=== PATIENT | female | born 1955 | race Hispanic/Latino ===

== ENCOUNTER 2023-11-23 16:20 | Emergency (ER) | payer MEDICARE ==
[~2023-11-23] VITALS: Ht 152.4 cm; Wt 72.6 kg
[2023-11-23 16:57] LABS: BASOPHILS # (AUTO) 0.07 K/uL (0.00-0.20); BASOPHILS % (AUTO) 0.7 % (0.0-5.0); EOSINOPHILS # (AUTO) 0.26 K/uL (0.00-0.70); EOSINOPHILS % (AUTO) 2.7 % (0.0-8.0); IMMATURE GRANULOCYTE ABSOLUTE 0.05 K/uL (0-1); LYMPHOCYTES # (AUTO) 2.2 K/uL (1.0-4.8); LYMPHOCYTES % (AUTO) 23.3 % (21.0-51.0); MEAN CORPUSCULAR HEMOGLOBIN 30.4 pg (27.0-33.0); MEAN CORPUSCULAR HGB CONC 33.1 g/dL (32.0-36.0); MEAN CORPUSCULAR VOLUME 91.8 fL (79-99); MONOCYTES # (AUTO) 0.5 K/uL (0.1-1.0); MONOCYTES % (AUTO) 5.6 % (3.0-13.0); NEUTROPHILS # (AUTO) 6.4 K/uL (1.8-7.7); NEUTROPHILS % (AUTO) 67.2 % (40.0-77.0); PLATELET COUNT (AUTO) 309 K/uL (130-400); RED BLOOD CELL COUNT(AUTO) 3.92 MIL/uL (4.00-5.50); WHITE BLOOD COUNT (AUTO) 9.5 K/uL (4.8-10.8)
[2023-11-23 17:07] LABS: CREATININE 1.3 mg/dL (0.5-1.0); POTASSIUM 5.5 mmol/L (3.5-5.1)
[2023-11-23 17:18] LABS: ALBUMIN 3.7 g/dL (3.5-5.0); BILIRUBIN,DIRECT 0.1 mg/dL (0.0-0.3); BILIRUBIN,TOTAL 0.4 mg/dL (0.2-1.0); TOTAL PROTEIN, SERUM 7.4 g/dL (6.0-8.3)
[2023-11-23] MEDS ORDERED: KETOROLAC 60 MG VIAL (30MG/ML) IM SCH (19:00)
[2023-11-23] MEDS: KETOROLAC 15MG/ML VIAL (15MG/ML) IV SCH (19:03)
[2023-11-23 19:33] LABS: APPEARANCE,URINE CLEAR (CLEAR); BILIRUBIN,URINE NEGATIVE (NEGATIVE); COLOR,URINE COLORLESS (YELLOW); GLUCOSE, URINE (UA) NEGATIVE (NEGATIVE); KETONES,URINE NEGATIVE (NEGATIVE); LEUKOCYTE ESTERASE ,URINE 75 Leu/uL (NEGATIVE); NITRATE,URINE NEGATIVE (NEGATIVE); OCCULT BLOOD,URINE NEGATIVE (NEGATIVE); PROTEIN,URINE NEGATIVE (NEGATIVE); UROBILINOGEN,URINE 0.2 mg/dL (0.2-1.0)
[2023-11-23 20:08] LABS: ADD UA MICROSCOPIC YES
[2023-11-23 20:20] LABS: BACTERIA,URINE MANY /HPF (None Seen)
[2023-11-23] MEDS: 0.9%NACL 1000ML 1,000 ML IV STA (20:55)
[2023-11-23] MEDS: MORPHINE 2 MG SYG IVP STA (21:21)
[2023-11-23 22:17] LABS: CREATININE 1.2 mg/dL (0.5-1.0); POTASSIUM 4.9 mmol/L (3.5-5.1)
[2023-11-23 22:39] VITALS: BP 172/70; PULSE 64; RESP 18; O2SAT 98
== END 2023-11-23 22:50 | disposition home or self-care (01) ==
LOC: EDH 16:20
DX: E86.0 Dehydration (principal); R10.31 Right lower quadrant pain; E11.9 Type 2 diabetes mellitus without complications
CPT/HCPCS: 99285; 74176; 96374; 96361; 96375; 80076; 84484; 80048 ×2; 83690; 85025; 87086 ×2; 87186; 81001; 36415; 93005; J2270; J7030; J1885

== ENCOUNTER 2025-04-04 19:33 | Emergency (ER) | payer MEDICARE, MEDICAID ==
[~2025-04-04] VITALS: Ht 149.9 cm; Wt 57.2 kg
[2025-04-04 20:23] VITALS: BP 119/81; PULSE 79; RESP 18; TEMP 97.2; O2SAT 99
--- NOTE | 2025-04-04 20:35 | ERN ---
ED Note History of Present Illness Stated Complaint: C/O PULLING SKIN INSIDE MOUTH; BLEEDING CONTROLLE Chief Complaint: Other Problems Time Seen by MD: 20:13 Time Seen by Midlevel: 20:16 Dictation: Ms. Jenkins is a 69-year-old female with history of type 2 diabetes and hypertension presented to the emergency department this evening for evaluation of mouth lesion. She states she noted a lesion to the inner aspect of the left cheek one month ago she feels that it has increased in size. It is bothersome to her so she pulled on it and it began to bleed. Her family brought her to the ER for continued bleeding. Triage nurse noted lesion had stopped bleeding and applied a new saline soaked gauze. He denies difficulty opening and closing mouth. She denies difficulty swallowing or speaking. She has never smoked. She denies fever, chills, shortness of breath, cough, chest pain, palpitations, edema, abdominal pain, nausea, vomiting, hematemesis, constipation, diarrhea, melena, hematochezia, dysuria, headache, dizziness, or focal weakness/paresthesia Allergies: Coded Allergies: No Known Drug Allergies (Unverified Allergy, Unknown, 11/23/23) Emergency Care FINANCIAL ASSISTANCE SPECIALIST: None Past Medical History Past Medical History: Diabetes-Type II, Hypertension Surgical History: None PSYCH History: no pertinent psych hx Social History: Negative, Lives with family History: Not Applicable RN Note Reviewed/Agreed w/PFSH: Yes Review of System Dictation REVIEW OF SYSTEMS: CONSTITUTIONAL: Patient denies fevers, chills, sweats and weight changes. EYES: Patient denies any visual symptoms. EARS, NOSE, AND THROAT: No difficulties with hearing. No symptoms of rhinitis or sore throat. Reports lesion to the inside of her left cheek started to bleed after she manipulated it. She states that the lesion has been there approximately one month and she feels that it has increased in size. CARDIOVASCULAR: Patient denies chest pains, palpitations, orthopnea and paroxysmal nocturnal dyspnea. RESPIRATORY: No dyspnea on exertion, no wheezing or cough. GI: No nausea, vomiting, diarrhea, constipation, abdominal pain, hematochezia or melena. : No urinary hesitancy or dribbling. No nocturia or urinary frequency. No abnormal urethral discharge. MUSCULOSKELETAL: No myalgias or arthralgias. NEUROLOGIC: No chronic headaches, no seizures. Patient denies numbness, tingling or weakness. PSYCHIATRIC: Patient denies problems with mood disturbance. No problems with anxiety. ENDOCRINE: No excessive urination or excessive thirst. DERMATOLOGIC: Patient denies any rashes or skin changes. Initial Vital Sign VS Vital Signs Date Time Temp Pulse Resp B/P (MAP) Pulse Ox O2 Delivery O2 Flow Rate FiO2 04/04/25 19:41 97.5 76 20 115/87 99 Room Air Physical Exam Dictation Vital signs: Reviewed. Afebrile Constitutional: No acute distress. Non-toxic appearing. Accompanied by seth dwyer x2 Head/Face: Normocephalic, atraumatic. Eyes: Periorbital areas with no swelling, redness, or edema. Lids and lashes are normal. Conjunctival injection is absent. Sclera anicteric. Pupils equal, round, reactive to light. ENT: Pinnas intact and no signs of trauma or erythema. Ear canals clear and no discharge. TMs no erythema. No nasal discharge or bleeding noted. Oropharynx with no exudate, redness, swelling, masses, exudates, or evidence of obstruction. Uvula midline. Mucous membranes moist. She is able to open and close mouth normally. No trismus. Speech is normal. Swallows without difficulty. Airway is patent. Moist mucous membranes. On the inner aspect of the left cheek/buccal mucosa, there is a pedunculated lesion measuring approximately 0.5 cm in diameter, projecting outward on a small trunk or stalk approximately 0.5 cm long. The surface has a central indentation. Color is mixed: Areas of dark purple to nearly black discoloration without sloughing, drainage, or foul odor. There was no surrounding erythema or edema, fluctuance and bleeding has resolved. The remainder of the oral mucosa appears normal wit hout ulcerations, trauma, or gum bleeding. Neck: Trachea midline, no masses palpated, and no cervical lymphadenopathy. No swelling. Supple, full range of motion. Chest/Axilla: No tenderness, no crepitus, no paradoxical movement, no retractions. Cardiovascular: Regular rate, regular rhythm, no murmur, no gallops. Symmetric pulses. No peripheral edema. Respiratory: Respirations even and unlabored. Lung sounds clear; no wheezes, rales or rhonchi. Room air SpO2 98% Gastrointestinal: Inspection is normal. No distention is appreciated. Bowel sounds are normal. No mass or organomegaly . There is no tenderness. No rebound. No rigidity. No voluntary or involuntary guarding. No Whitfield's sign. Neurological: Normal speech, gross motor function intact, gross sensory function intact. No focal weakness/Paresthesia. Musculoskeletal/Extremities: All extremities have full range of motion, no pain or tenderness on palpation. Symmetric pulses. Integumentary: Intact. Skin is normal color, warm and dry. Cap refill less than 3 seconds. ED Course ED Course Vital Signs Date Time Temp Pulse Resp B/P (MAP) Pulse Ox O2 Delivery O2 Flow Rate FiO2 04/04/25 19:41 97.5 76 20 115/87 99 Room Air Uneventful ED course. Airway remains patent vital signs are stable. No further bleeding to oral lesion. Findings were discussed with patient and her daughters x2. she was instructed to follow up as soon as possible with her primary care physician as she needs to see a ENT specialist or oral surgeon so that the lesion can be examined further and biopsied. They verbalized understanding. Medical Decision Making MDM MDM: Differential diagnosis: Vascular lesion (hemangioma), pyogenic granuloma, traumatic fibroma, benign mucosal polyps, or malignant lesion Rationale: Tests considered and ordered secondary to shared decision making include: Previous outside records reviewed: Old ER visits. Risk of complication and/or morbidity or mortality of patient management: None Medications-Per medication reconciliation Need for hospitalization: Patient does not meet criteria for hospitalization. Need for emergency major/minor surgery: No There are no social concerns with this patient. Prescription drug management: None Prescriptions will include symptomatic care Patient's prior external medical records from other ER visits were reviewed by me as indicated. Prior testing and results from previous visits were reviewed. Prior tests were taken into account with medical decision making and resource utilization, independent historian/historians were used to obtain complete medical history. I independently interpreted the test that were performed, results were reviewed by me and considered findings on radiology if ordered. Medical management and examination interpretation discussions were had by me with other qualified healthcare professionals as indicated for the patient's care. DX & DISP Disposition: Discharge Departure Condition: Stable Additional Instructions: You were seen today for a bleeding lesion inside your left cheek. The bleeding has completely stopped, and no emergency intervention is needed at this time because the lesion has been present for about a month, increased in size, has dark discoloration, and has a raised/stalk like appearance it is very important that you follow up as soon as possible with your primary care doctor within 1-2 days. You will most likely be referred to an ENT specialist or an oral surgeon so that the lesion can be examined further and biopsied. This is the only way to determine if it is benign or something that needs treatment. At home do not pull, scratch or bite at the lesion. Rinse mouth gently with warm saltwater if sore. Avoid spicy/acidic foods temporarily if it becomes irritated. Maintain good oral hygiene. Return to the ER if you notice: Bleeding that does not stop, rapid swelling in the mouth, trouble breathing/swallowing/or speaking, fever/foul odor/drainage, or any sudden change that concerns you. Referrals: JULIO BAILEY (PCP) Time of Disposition: 20:34 IDA BOLIVAR [facility] Apr 04, 2025 20:35
== END 2025-04-04 20:59 | disposition home or self-care (01) ==
LOC: EDH 19:33
DX: K13.70 Unspecified lesions of oral mucosa (principal); E11.9 Type 2 diabetes mellitus without complications; I10 Essential (primary) hypertension
CPT/HCPCS: 99282